=== PATIENT | male | born 1950 | race African-American/Black ===

== ENCOUNTER 2020-02-21 09:46 | Emergency (ER) | payer OTHER ==
[2020-02-21 09:55] VITALS: BMI 27.2
--- NOTE | 2020-02-21 11:05 | PDOC ---
History of Present Illness - General Chief Complaint: Blood Pressure Problem Stated Complaint: BLOOD PRESSURE PROBLEM Time Seen by Provider: 02/21/20 10:42 - History of Present Illness Initial Comments: Dagoberto Teran is a 69 y/o male with PMH significant for HTN presenting today with high blood pressure. He has been taking Losartan BID for many years now. Today he took his dose a little later than usual (7am instead of 5am). He checked his blood pressure and found it to be in the 190s. Reports mild left sided parietal headache (dull) that has since resolved. No vision changes. Reports mild left chest soreness that is non reproducible and non pleuritic for the past day. No nausea/vomiting. No back pain. No abdominal pain. No leg swelling. SocHx: 30 pack year smoking FamHx: HTN in father and mother, no hx of CAD Past History - Medical History Allergies/Adverse Reactions: Allergies Allergy/AdvReac Type Severity Reaction Status Date / Time No Known Allergies Allergy Verified 02/21/20 09:51 Home Medications: Ambulatory Orders Losartan/Hydrochlorothiazide 50 mg PO DAILY 02/21/20 Omeprazole Magnesium 20 mg PO ASDIR 02/21/20 COPD: No HTN: Yes - Surgical History Abdominal Surgery: Yes (bilat inguinal hernia repair @ 60 yrs ago) Cardiac Surgery: Yes (cardiac cath (neg)) - Psycho-Social/Smoking History Smoking History: Former smoker Have you smoked in the past 12 months: No Information on smoking cessation initiated: No - Substance Abuse Hx (Audit-C & DAST Scrn) How often the patient has a drink containing alcohol: Monthly or less Score: In Men: 4 or > Positive; In Women: 3 or > Positive: 1 Screen Result (Pos requires Nsg. Audit-10AR): Negative In the last yr the pt used illegal drug/Rx for NonMed reason: No Score: Yes response is considered Positive: 0 Screen Result (Positive result requires Nsg. DAST-10): Negative Review of Systems - Review of Systems Comments:: GENERAL/CONSTITUTIONAL: No fever or chills. No weakness._ HEAD, EYES, EARS, NOSE AND THROAT: No change in vision. No change in hearing. No sore throat._ CARDIOVASCULAR: Reports chest soreness. No shortness of breath_ RESPIRATORY: Denies cough, hemoptysis_ GASTROINTESTINAL: No nausea, vomiting, diarrhea or constipation._ GENITOURINARY: No dysuria, frequency, or change in urination._ MUSCULOSKELETAL: No joint or muscle swelling or pain. No neck or back pain._ SKIN: No rash_ NEUROLOGIC: Reports mild headache. No vertigo, loss of consciousness, or change in strength/sensation._ ENDOCRINE: No increased thirst. No abnormal weight change_ HEMATOLOGIC/LYMPHATIC: No anemia, easy bleeding, or history of blood clots._ ALLERGIC/IMMUNOLOGIC: No hives or skin allergy._ *Physical Exam - Vital Signs Last Vital Signs Temp Pulse Resp BP Pulse Ox 98.1 F 82 16 140/82 98 02/21/20 09:52 02/21/20 09:52 02/21/20 09:52 02/21/20 09:52 02/21/20 09:52 - Physical Exam GENERAL: Awake, alert, and oriented to person/place/time, in no acute distress_ HEAD: No signs of trauma, normocephalic, atraumatic _ EYES: PERRLA, EOMI, sclera anicteric, conjunctiva clear_ ENT: Hearing grossly normal, nares patent, oropharynx clear without exudates. No uvular deviation. Moist mucosa_ NECK: Normal ROM, supple, no lymphadenopathy, JVD, or masses_ LUNGS: No distress, speaks in full sentences, clear to auscultation bilaterally _ HEART: Regular rate and rhythm, normal S1 and S2, no murmurs appreciated, peripheral pulses normal and equal bilaterally._ ABDOMEN: Soft, nontender, normoactive bowel sounds. No guarding, no rebound. No masses_ EXTREMITIES: Normal inspection, Normal range of motion, no edema. No clubbing or cyanosis_ NEUROLOGICAL: Cranial nerves II through XII grossly intact. Normal speech, normal gait, no focal sensorimotor deficits _ SKIN: Warm, Dry, normal turgor, no rashes or lesions noted_ Heart Score/ECG Review - History History: Slightly suspicious - Electrocardiogram EKG: Normal - Age Age: >/= 65 - Risk Factors Risk Factors Heart Score: Yes Hx Hypertension, Yes Smoking History, No Positive family hx of cardiac disease Based on the list above the patient has:: 1-2 risk factors - Troponin Troponin: </= normal limit - Score Heart Score - Total: 3 ED Treatment Course - LABORATORY CBC & Chemistry Diagram: 02/21/20 11:00 02/21/20 11:00 - RADIOLOGY Radiology Studies Ordered: Category Date Time Status CHEST X-RAY PORTABLE* [RAD] Stat Radiology 02/21/20 10:57 Ordered Medical Decision Making - Medical Decision Making 02/21/20 11:16 69M hx of HTN presenting with high blood pressure at home in the 190s. Reports mild left sided parietal/occipital headache and left chest soreness. HEART score 3. -labs -trop x2 -ekg -cxr -ua 02/21/20 12:38 CXR negative for acute chest pathology. Labs reviewed. Laboratory Last Values WBC 7.6 K/mm3 (4.0-10.0) 02/21/20 11:00 RBC 5.80 M/mm3 (4.00-5.60) H 02/21/20 11:00 Hgb 15.9 GM/dL (11.7-16.9) 02/21/20 11:00 Hct 48.6 % (35.4-49) 02/21/20 11:00 MCV 83.8 fl (80-96) 02/21/20 11:00 MCH 27.4 pg (25.7-33.7) 02/21/20 11:00 MCHC 32.7 g/dl (32.0-35.9) 02/21/20 11:00 RDW 14.3 % (11.9-15.9) 02/21/20 11:00 Plt Count 242 K/MM3 (134-434) 02/21/20 11:00 MPV 8.5 fl (7.5-11.1) 02/21/20 11:00 Absolute Neuts (auto) 4.4 K/mm3 (1.5-8.0) 02/21/20 11:00 Neutrophils % 57.4 % (42.8-82.8) 02/21/20 11:00 Lymphocytes % 29.7 % (8-40) 02/21/20 11:00 Monocytes % 9.4 % (3.8-10.2) 02/21/20 11:00 Eosinophils % 2.6 % (0-4.5) 02/21/20 11:00 Basophils % 0.9 % (0-2.0) 02/21/20 11:00 Nucleated RBC % 0 % (0-0) 02/21/20 11:00 Sodium 143 mmol/L (136-145) 02/21/20 11:00 Potassium 3.8 mmol/L (3.5-5.1) 02/21/20 11:00 Chloride 111 mmol/L (98-107) H 02/21/20 11:00 Carbon Dioxide 25 mmol/L (21-32) 02/21/20 11:00 Anion Gap 7 MMOL/L (8-16) L 02/21/20 11:00 BUN 11.9 mg/dL (7-18) 02/21/20 11:00 Creatinine 0.8 mg/dL (0.55-1.3) 02/21/20 11:00 Est GFR (CKD-EPI)AfAm 106.38 02/21/20 11:00 Est GFR (CKD-EPI)NonAf 91.79 02/21/20 11:00 Random Glucose 94 mg/dL (74-106) 02/21/20 11:00 Calcium 9.9 mg/dL (8.5-10.1) 02/21/20 11:00 Total Bilirubin 1.4 mg/dL (0.2-1) H 02/21/20 11:00 AST 18 U/L (15-37) 02/21/20 11:00 ALT 30 U/L (13-61) 02/21/20 11:00 Alkaline Phosphatase 82 U/L (45-117) 02/21/20 11:00 Creatine Kinase 140 U/L (26-308) 02/21/20 11:00 Troponin I < 0.02 ng/ml (0.00-0.05) 02/21/20 11:00 Total Protein 7.1 g/dl (6.4-8.2) 02/21/20 11:00 Albumin 4.0 g/dl (3.4-5.0) 02/21/20 11:00 Urine Color Yellow 02/21/20 11:44 Urine Appearance Clear 02/21/20 11:44 Urine pH 5.5 (5.0-8.0) 02/21/20 11:44 Ur Specific [place] 1.020 (1.010-1.035) 02/21/20 11:44 Urine Protein Negative (NEGATIVE) 02/21/20 11:44 Urine Glucose (UA) Negative (NEGATIVE) 02/21/20 11:44 Urine Ketones Negative (NEGATIVE) 02/21/20 11:44 Urine Blood Negative (NEGATIVE) 02/21/20 11:44 Urine Nitrite Negative (NEGATIVE) 02/21/20 11:44 Urine Bilirubin Negative (NEGATIVE) 02/21/20 11:44 Urine Urobilinogen 1.0 mg/dL (0.2-1.0) 02/21/20 11:44 Ur Leukocyte Esterase Negative (NEGATIVE) 02/21/20 11:44 02/21/20 12:52 EKG shows 78 bpm, NSR, no ST elevation, normal axis, QTc 440. 02/21/20 14:42 EKG #2 shows 66 bpm, NSR, borderline left axis, no ST elevation, QTc 436, no change from EKG #1. 02/21/20 15:43 Labs reviewed. Laboratory Last Values WBC 7.6 K/mm3 (4.0-10.0) 02/21/20 11:00 RBC 5.80 M/mm3 (4.00-5.60) H 02/21/20 11:00 Hgb 15.9 GM/dL (11.7-16.9) 02/21/20 11:00 Hct 48.6 % (35.4-49) 02/21/20 11:00 MCV 83.8 fl (80-96) 02/21/20 11:00 MCH 27.4 pg (25.7-33.7) 02/21/20 11:00 MCHC 32.7 g/dl (32.0-35.9) 02/21/20 11:00 RDW 14.3 % (11.9-15.9) 02/21/20 11:00 Plt Count 242 K/MM3 (134-434) 02/21/20 11:00 MPV 8.5 fl (7.5-11.1) 02/21/20 11:00 Absolute Neuts (auto) 4.4 K/mm3 (1.5-8.0) 02/21/20 11:00 Neutrophils % 57.4 % (42.8-82.8) 02/21/20 11:00 Lymphocytes % 29.7 % (8-40) 02/21/20 11:00 Monocytes % 9.4 % (3.8-10.2) 02/21/20 11:00 Eosinophils % 2.6 % (0-4.5) 02/21/20 11:00 Basophils % 0.9 % (0-2.0) 02/21/20 11:00 Nucleated RBC % 0 % (0-0) 02/21/20 11:00 Sodium 143 mmol/L (136-145) 02/21/20 11:00 Potassium 3.8 mmol/L (3.5-5.1) 02/21/20 11:00 Chloride 111 mmol/L (98-107) H 02/21/20 11:00 Carbon Dioxide 25 mmol/L (21-32) 02/21/20 11:00 Anion Gap 7 MMOL/L (8-16) L 02/21/20 11:00 BUN 11.9 mg/dL (7-18) 02/21/20 11:00 Creatinine 0.8 mg/dL (0.55-1.3) 02/21/20 11:00 Est GFR (CKD-EPI)AfAm 106.38 02/21/20 11:00 Est GFR (CKD-EPI)NonAf 91.79 02/21/20 11:00 Random Glucose 94 mg/dL (74-106) 02/21/20 11:00 Calcium 9.9 mg/dL (8.5-10.1) 02/21/20 11:00 Total Bilirubin 1.4 mg/dL (0.2-1) H 02/21/20 11:00 AST 18 U/L (15-37) 02/21/20 11:00 ALT 30 U/L (13-61) 02/21/20 11:00 Alkaline Phosphatase 82 U/L (45-117) 02/21/20 11:00 Creatine Kinase 140 U/L (26-308) 02/21/20 11:00 Troponin I < 0.02 ng/ml (0.00-0.05) 02/21/20 14:30 Total Protein 7.1 g/dl (6.4-8.2) 02/21/20 11:00 Albumin 4.0 g/dl (3.4-5.0) 02/21/20 11:00 Urine Color Yellow 02/21/20 11:44 Urine Appearance Clear 02/21/20 11:44 Urine pH 5.5 (5.0-8.0) 02/21/20 11:44 Ur Specific [place] 1.020 (1.010-1.035) 02/21/20 11:44 Urine Protein Negative (NEGATIVE) 02/21/20 11:44 Urine Glucose (UA) Negative (NEGATIVE) 02/21/20 11:44 Urine Ketones Negative (NEGATIVE) 02/21/20 11:44 Urine Blood Negative (NEGATIVE) 02/21/20 11:44 Urine Nitrite Negative (NEGATIVE) 02/21/20 11:44 Urine Bilirubin Negative (NEGATIVE) 02/21/20 11:44 Urine Urobilinogen 1.0 mg/dL (0.2-1.0) 02/21/20 11:44 Ur Leukocyte Esterase Negative (NEGATIVE) 02/21/20 11:44 Pt reassessed. Reports significant improvement. Plan to d/c home with PCP and cards f/u. All questions answered. Return precautions given. Pt verbalized understanding and agreement with plan. Discharge - Discharge Information Problems reviewed: Yes Clinical Impression/Diagnosis: Chest pain Qualifiers: Chest pain type: unspecified Qualified Code(s): R07.9 - Chest pain, unspecified Hypertension Qualifiers: Hypertension type: unspecified Qualified Code(s): I10 - Essential (primary) hypertension Condition: Stable - Admission No - Follow up/Referral Referrals: Guille Michelle MD [Primary Care Provider] - - Patient Discharge Instructions Patient Printed Discharge Instructions: DI for High Blood Pressure Additional Instructions: Please make a follow up appointment with your primary care doctor and a green building engineer (referrals provided here). Please continue taking your medications as prescribed. If you experience any new, worsening, or concerning symptoms, including worsening chest pain, shortness of breath, dizziness, headache, or any other concerns, please return to the emergency department. - Post Discharge Activity
[2020-02-21 11:19] LABS: BASO % 0.9 % (0-2.0); EOS % 2.6 % (0-4.5); HEMATOCRIT 48.6 % (35.4-49); HEMOGLOBIN 15.9 GM/dL (11.7-16.9); LYMPH % 29.7 % (8-40); MCH 27.4 pg (25.7-33.7); MCHC 32.7 g/dl (32.0-35.9); MEAN CELL VOLUME 83.8 fl (80-96); MEAN PLT VOLUME 8.5 fl (7.5-11.1); MONO % 9.4 % (3.8-10.2); NEUT % 57.4 % (42.8-82.8); PLATELET COUNT 242 K/MM3 (134-434); RDW 14.3 % (11.9-15.9); WHITE BLOOD COUNT 7.6 K/mm3 (4.0-10.0)
[2020-02-21 11:58] LABS: ALK PHOS 82 U/L (45-117); ANION GAP 7 MMOL/L (8-16); BILIRUBIN,TOTAL 1.4 mg/dL (0.2-1); BLOOD UREA NITROGEN 11.9 mg/dL (7-18); CALCIUM 9.9 mg/dL (8.5-10.1); CHLORIDE 111 mmol/L (98-107); CO2 25 mmol/L (21-32); CREATININE 0.8 mg/dL (0.55-1.3); GLUCOSE,RANDOM 94 mg/dL (74-106); POTASSIUM 3.8 mmol/L (3.5-5.1); SGOT/AST 18 U/L (15-37); SGPT/ALT 30 U/L (13-61); SODIUM 143 mmol/L (136-145); TOT PROT 7.1 g/dl (6.4-8.2)
[2020-02-21 12:05] LABS: PH,URINE 5.5 (5.0-8.0); URINE APPEARANCE CLEAR; URINE BILIRUBIN NEGATIVE (NEGATIVE); URINE COLOR YELLOW; URINE GLUCOSE (UA) NEGATIVE (NEGATIVE); URINE KETONE NEGATIVE (NEGATIVE); URINE LEUK ESTERASE NEGATIVE (NEGATIVE); URINE NITRITE NEGATIVE (NEGATIVE); URINE PROTEIN NEGATIVE (NEGATIVE)
--- NOTE | 2020-02-21 12:54 | PDOC ---
Documentation entered by Paris Madrid SCRIBE, acting as scribe for Cris Parker MD. Cris Parker MD: This documentation has been prepared by the Julius rm Brenda, SCRIBE, under my direction and personally reviewed by me in its entirety. I confirm that the documentation accurately reflects all work, treatment, procedures, and medical decision making performed by me. Attending Attestation - Resident Resident Name: Moreno Briscoe - ED Attending Attestation I have performed the following: I have examined & evaluated the patient, The case was reviewed & discussed with the resident, I agree w/resident's findings & plan, Exceptions are as noted - HPI HPI: 02/21/20 10:55 The patient is a 69 year old male with a significant PMH of HTN (on Losartan) and prostate cancer who presents to the ED for evaluation of high blood pressure since this morning. Patient notes that he has been on Losartan for years and usually takes it at 5:00am, however today he took it at 7:00am and when he checked his BP it was 190, prompting him to come into the ED. Patient is also endorsing left sided chest tightness. The patient denies shortness of breath and dizziness. Denies fever, chills, nausea, vomiting, diarrhea and constipation. Denies dysuria, frequency, urgency and hematuria. Allergies: NKA Social history: No reported hx of tobacco use, alcohol use or illicit drug use. PCP: Guille Michelle 02/22/20 14:49 - Physicial Exam PE: 02/21/20 10:57 GENERAL: nontoxic-appearing, A/Ox4, no distress, answers questions appropriately, pleasant, not anxious, accompanied by significant other who is supportive HEENT: PERRLA, EOMI, moist mucous membranes NECK/BACK: no midline ttp, no spinal stepoff or deformity, no hematoma, full ROM, neck supple CARDIOVASCULAR: regular rate/rhythm, no MGR, strong peripheral pulses, capillary refill <2 seconds, extremities wwp, no edema LUNGS/RESPIRATORY: no respiratory distress, CTAB GI/ABDOMEN: symmetric [id number], normoactive BS, soft, no ttp, no midline pulsatile masses : no CVA tenderness MSK/EXTREMITIES: no muscle atrophy, no acute deformity SKIN: warm and dry, no pallor, no jaundice, no rash, no pathologic-appearing bruising, no skin breakdown, no cuts, no lesions NEUROLOGICAL: GCS 15, CN II-XII grossly intact, 5/5 strength proximally and distally, no facial droop - Medical Decision Making 02/21/20 12:52 69YOM p/w chest pain. Initial Vital Signs Temp Pulse Resp BP Pulse Ox 98.1 F 82 16 140/82 98 02/21/20 09:52 02/21/20 09:52 02/21/20 09:52 02/21/20 09:52 02/21/20 09:52 DDX IBNLT: most likely musculoskeletal or ACS, less likely any other serious diagnosis e.g. pericarditis, PTX, PE, gastritis, PUD, PNA/bronchitis, etc. Will assess for each of these wiht labs and imaging as well as EKG. W/U ordered: EKG CXR Labs as below EKG: Reviewed; results as noted in ECG Review section. RAD/CHEST X-RAY PORTABLE* Portable chest: Chest soreness. Single AP view of the chest has been submitted. Since the prior since 10/21/2010, again noted is a good inspiration with clear lungs, normal mediastinum and sharp angles. The bones and soft tissues are intact. Impression: No acute chest pathology. Laboratory Tests 02/21/20 02/21/20 02/21/20 11:00 11:00 11:44 WBC 7.6 RBC 5.80 H Hgb 15.9 Hct 48.6 MCV 83.8 MCH 27.4 MCHC 32.7 RDW 14.3 Plt Count 242 MPV 8.5 Absolute Neuts (auto) 4.4 Neutrophils % 57.4 Lymphocytes % 29.7 Monocytes % 9.4 Eosinophils % 2.6 Basophils % 0.9 Nucleated RBC % 0 Sodium 143 Potassium 3.8 Chloride 111 H Carbon Dioxide 25 Anion Gap 7 L BUN 11.9 Creatinine 0.8 Est GFR (CKD-EPI)AfAm 106.38 Est GFR (CKD-EPI)NonAf 91.79 Random Glucose 94 Calcium 9.9 Total Bilirubin 1.4 H AST 18 ALT 30 Alkaline Phosphatase 82 Creatine Kinase 140 Troponin I < 0.02 Total Protein 7.1 Albumin 4.0 Urine Color Yellow Urine Appearance Clear Urine pH 5.5 Ur Specific [place] 1.020 Urine Protein Negative Urine Glucose (UA) Negative Urine Ketones Negative Urine Blood Negative Urine Nitrite Negative Urine Bilirubin Negative Urine Urobilinogen 1.0 Ur Leukocyte Esterase Negative 02/21/20 14:30 WBC RBC Hgb Hct MCV MCH MCHC RDW Plt Count MPV Absolute Neuts (auto) Neutrophils % Lymphocytes % Monocytes % Eosinophils % Basophils % Nucleated RBC % Sodium Potassium Chloride Carbon Dioxide Anion Gap BUN Creatinine Est GFR (CKD-EPI)AfAm Est GFR (CKD-EPI)NonAf Random Glucose Calcium Total Bilirubin AST ALT Alkaline Phosphatase Creatine Kinase Troponin I < 0.02 Total Protein Albumin Urine Color Urine Appearance Urine pH Ur Specific [place] Urine Protein Urine Glucose (UA) Urine Ketones Urine Blood Urine Nitrite Urine Bilirubin Urine Urobilinogen Ur Leukocyte Esterase Last Vital Signs Temp Pulse Resp BP Pulse Ox 98 F 78 18 139/78 98 02/21/20 15:51 02/21/20 15:51 02/21/20 15:51 02/21/20 15:51 02/21/20 15:51 Repeat EKG unchanged: NSR, rate 66, left axis deviation, no ischemic ST-T changes. Repeat cardiac enzymes are negative. No new abnormal rhythms have been observed on the lunchroom monitor. On last reassessment VS are stable, Pts pain is resolved, and exam is benign. The Pts HEART score indicates they are low risk and do not require admission currently. The Pt is appropriate for discharge with close outpatient follow up. They are comfortable with this plan and will follow up with PCP in 1-3 days. Specific return precautions are discussed and they will come back to the ER if necessary. Heart Score/ECG Review - History History: Slightly suspicious - Electrocardiogram EKG: Normal - Age Age: >/= 65 - Risk Factors Risk Factors Heart Score: Yes Hx Hypertension Based on the list above the patient has:: 1-2 risk factors - Troponin Troponin: </= normal limit - Score Heart Score - Total: 3 #1 Sinus rhythm, rate 78, normal axis and intervals, no ischemic ST-T changes Discharge - Discharge Information Problems reviewed: Yes Clinical Impression/Diagnosis: Chest pain Qualifiers: Chest pain type: unspecified Qualified Code(s): R07.9 - Chest pain, unspecified Hypertension Qualifiers: Hypertension type: unspecified Qualified Code(s): I10 - Essential (primary) hypertension Condition: Stable Disposition: HOME - Admission No - Follow up/Referral Referrals: Rashad Hoang MD [Staff Physician] - Guille Michelle MD [Primary Care Provider] - - Patient Discharge Instructions Patient Printed Discharge Instructions: DI for High Blood Pressure Additional Instructions: Please make a follow up appointment with your primary care doctor and a marketing services coordinator (referrals provided here). Please continue taking your medications as prescribed. If you experience any new, worsening, or concerning symptoms, including worsening chest pain, shortness of breath, dizziness, headache, or any other concerns, please return to the emergency department. - Post Discharge Activity
--- NOTE | 2020-02-21 14:57 | EKG ---
Test Reason : Blood Pressure : / mmHG Vent. Rate : 078 BPM Atrial Rate : 078 BPM P-R Int : 124 ms QRS Dur : 098 ms QT Int : 386 ms P-R-T Axes : 061 -29 056 degrees QTc Int : 440 ms NORMAL SINUS RHYTHM MINIMAL VOLTAGE CRITERIA FOR LVH, MAY BE NORMAL VARIANT BORDERLINE ECG WHEN COMPARED WITH ECG OF 22-OCT-2010 10:11, NO SIGNIFICANT CHANGE WAS FOUND Confirmed by DANNA AMATO MD ([id number]) on 02/21/2020 2:57:05 PM Referred By: Confirmed By:DANNA AMATO MD
[2020-02-21 15:53] VITALS: BP 139/78; PULSE 78; TEMP 98
--- NOTE | 2020-02-23 09:25 | EKG ---
Test Reason : Blood Pressure : / mmHG Vent. Rate : 066 BPM Atrial Rate : 066 BPM P-R Int : 124 ms QRS Dur : 106 ms QT Int : 416 ms P-R-T Axes : 066 -33 016 degrees QTc Int : 436 ms NORMAL SINUS RHYTHM LEFT AXIS DEVIATION /LAFB MODERATE VOLTAGE CRITERIA FOR LVH, MAY BE NORMAL VARIANT ABNORMAL ECG WHEN COMPARED WITH ECG OF 21-FEB-2020 09:56, NO SIGNIFICANT CHANGE WAS FOUND Confirmed by Shayy Marrufo ([id number]) on 02/23/2020 9:24:30 AM Referred By: Confirmed By:Shayy Marrufo
== END 2020-02-21 15:53 | disposition home or self-care (01) ==
LOC: JER 09:46
DX: R07.9 Chest pain, unspecified (principal); I10 Essential (primary) hypertension
CPT/HCPCS: 36415; 71045-TC-FY; 80053; 81003; 82550; 84484; 85025; 93005; 93010; 99285-25

== ENCOUNTER 2022-02-07 12:05 | Inpatient (IN) | payer OTHER ==
[2022-02-07 12:32] VITALS: BMI 23.3
[2022-02-07 14:19] LABS: INR 1.03 (0.83-1.09); PROTHROMBIN TIME (PATIENT) 11.9 SEC (9.7-13.0)
[2022-02-07 14:20] LABS: BASO % 0.2 % (0-2.0); EOS % 0.5 % (0-4.5); HEMATOCRIT 40.7 % (35.4-49); HEMOGLOBIN 13.3 GM/dL (11.7-16.9); LYMPH % 4.5 % (8-40); MCH 26.9 pg (25.7-33.7); MCHC 32.6 g/dl (32.0-35.9); MEAN CELL VOLUME 82.6 fl (80-96); MEAN PLT VOLUME 8.8 fl (7.5-11.1); MONO % 7.9 % (3.8-10.2); NEUT % 86.9 % (42.8-82.8); PLATELET COUNT 238 10^3/uL (134-434); RBC 4.93 M/mm3 (4.00-5.60); RDW 13.9 % (11.9-15.9); WHITE BLOOD COUNT 13.3 K/mm3 (4.0-10.0)
[2022-02-07 14:22] LABS: ACTIVATED PTT 25.6 SECONDS (25.2-36.5)
[2022-02-07 14:42] LABS: CALCIUM 9.2 mg/dL (8.5-10.1)
[2022-02-07 14:43] LABS: ALBUMIN 3.8 g/dl (3.4-5.0); BLOOD UREA NITROGEN 18.5 mg/dL (7-18)
[2022-02-07 14:46] LABS: CREATININE 0.9 mg/dL (0.55-1.3)
[2022-02-07 14:47] LABS: BILIRUBIN,TOTAL 1.6 mg/dL (0.2-1); TOT PROT 6.5 g/dl (6.4-8.2)
[2022-02-07 15:06] LABS: EPI CELLS 2 /uL (0-25.1); HYALINE CASTS 1 /uL (0-3.1); URINE APPEARANCE CLEAR; URINE BACTERIA 1 /uL (0-1359); URINE BILIRUBIN NEGATIVE (NEGATIVE); URINE COLOR YELLOW; URINE GLUCOSE (UA) NEGATIVE (NEGATIVE); URINE KETONE NEGATIVE (NEGATIVE); URINE LEUK ESTERASE TRACE (NEGATIVE); URINE NITRITE NEGATIVE (NEGATIVE); URINE PROTEIN NEGATIVE (NEGATIVE); URINE RBC 13 /uL (0-23.9); URINE WBC 6 /uL (0-25.8)
[2022-02-08 08:16] LABS: BASO % 0.2 % (0-2.0); EOS % 0.4 % (0-4.5); HEMATOCRIT 41.1 % (35.4-49); HEMOGLOBIN 13.3 GM/dL (11.7-16.9); LYMPH % 7.7 % (8-40); MCH 26.5 pg (25.7-33.7); MCHC 32.5 g/dl (32.0-35.9); MEAN CELL VOLUME 81.8 fl (80-96); MEAN PLT VOLUME 8.7 fl (7.5-11.1); MONO % 8.4 % (3.8-10.2); NEUT % 83.3 % (42.8-82.8); PLATELET COUNT 243 10^3/uL (134-434); RBC 5.02 M/mm3 (4.00-5.60); RDW 14.1 % (11.9-15.9); WHITE BLOOD COUNT 9.7 K/mm3 (4.0-10.0)
[2022-02-08 08:46] LABS: CALCIUM 9.3 mg/dL (8.5-10.1)
[2022-02-08 08:47] LABS: ALBUMIN 3.6 g/dl (3.4-5.0); BLOOD UREA NITROGEN 16.4 mg/dL (7-18)
[2022-02-08 08:50] LABS: CREATININE 0.7 mg/dL (0.55-1.3)
[2022-02-08 08:52] LABS: BILIRUBIN,TOTAL 1.9 mg/dL (0.2-1); TOT PROT 6.2 g/dl (6.4-8.2)
[2022-02-08] MEDS ORDERED: LOSARTAN 50MG/HCTZ 12.5MG 1 TAB PO SCH (10:00)
[2022-02-08 10:57] VITALS: BP 117/64; PULSE 100; TEMP 98.9
== END 2022-02-08 13:20 | disposition left against medical advice (07) | DRG 312 ==
LOC: JER 12:05 → JERBED 15:29 → J4W 02-08 00:05
PROVIDERS: ADMIT Internal Medicine; ATTEND Internal Medicine
DX: R55 Syncope and collapse (principal); I95.9 Hypotension, unspecified; D72.829 Elevated white blood cell count, unspecified; N40.0 Benign prostatic hyperplasia without lower urinary tract symptoms; I10 Essential (primary) hypertension
CPT/HCPCS: 36415; 70450-TC; 71046-TC-FY; 80053; 81003; 82962; 84484; 85025; 85610; 85730; 87086; 93005; 93010; 93306-TC; 99285-25; C9803-CS; U0003; U0005

== ENCOUNTER 2023-10-18 11:26 | Emergency (ER) | payer OTHER ==
[2023-10-18 11:42] VITALS: BMI 24.0
[2023-10-18] MEDS: SODIUM CHLORIDE 0.9% 500 ML INFUS.BAG IV ONE (13:12)
[2023-10-18 13:25] LABS: HEMATOCRIT 42.3 % (35.4-49); HEMOGLOBIN 13.8 GM/dL (11.7-16.9); MCH 26.9 pg (25.7-33.7); MCHC 32.6 g/dl (32.0-35.9); MEAN CELL VOLUME 82.4 fl (80-96); PLATELET COUNT 274 10^3/uL (134-434); RBC 5.13 M/mm3 (4.00-5.60); RDW 14.2 % (11.9-15.9); WHITE BLOOD COUNT 16.1 K/mm3 (4.0-10.0)
[2023-10-18 13:26] LABS: EPI CELLS 5 /uL (0-25.1); HYALINE CASTS 0 /uL (0-3.1); URINE APPEARANCE CLEAR; URINE BACTERIA 3 /uL (0-1359); URINE BILIRUBIN NEGATIVE (NEGATIVE); URINE COLOR YELLOW; URINE GLUCOSE (UA) NEGATIVE (NEGATIVE); URINE KETONE NEGATIVE (NEGATIVE); URINE LEUK ESTERASE TRACE (NEGATIVE); URINE NITRITE NEGATIVE (NEGATIVE); URINE PROTEIN NEGATIVE (NEGATIVE); URINE RBC 24 /uL (0-23.9); URINE WBC 12 /uL (0-25.8)
[2023-10-18 13:29] VITALS: TEMP 98.7
[2023-10-18 14:02] LABS: BLOOD UREA NITROGEN 17.2 mg/dL (7-18); CALCIUM 9.8 mg/dL (8.5-10.1)
[2023-10-18 14:03] LABS: ALBUMIN 3.7 g/dl (3.4-5.0)
[2023-10-18 14:04] LABS: CREATININE 0.8 mg/dL (0.55-1.3)
[2023-10-18 14:07] LABS: BILIRUBIN,TOTAL 1.9 mg/dL (0.2-1); TOT PROT 6.7 g/dl (6.4-8.2)
[2023-10-18 16:21] VITALS: BP 115/63; PULSE 88; RESP 20
== END 2023-10-18 16:22 | disposition left against medical advice (07) ==
LOC: JER 11:26
DX: R55 Syncope and collapse (principal); R42 Dizziness and giddiness; R51.9 Headache, unspecified; Z20.822 Contact with and (suspected) exposure to COVID-19
CPT/HCPCS: 0241U-QW; 36415; 70450-TC; 71045-TC-FY; 80053; 81003; 82550; 84484; 85025; 87086; 93005; 93010; 99285-25

== ENCOUNTER 2024-08-18 11:42 | Emergency (ER) | payer OTHER ==
[2024-08-18 12:04] VITALS: BMI 24.7
[2024-08-18] MEDS: SODIUM CHLORIDE 1,000 ML IV STA (14:13)
[2024-08-18] MEDS ORDERED: ACETAMINOPHEN INJECTION 100 ML ONE (14:14)
[2024-08-18] MEDS: ACETAMINOPHEN 1000 MG/100 ML BAG IVPB ONE (14:18)
[2024-08-18 14:29] LABS: INR 1.04 (0.83-1.09); PROTHROMBIN TIME (PATIENT) 11.9 SEC (9.7-13.0)
[2024-08-18 14:32] LABS: ACTIVATED PTT 34.7 SECONDS (25.2-36.5)
[2024-08-18 14:34] LABS: BASO % 0.2 % (0-2.0); EOS % 0.3 % (0-4.5); HEMATOCRIT 47.8 % (35.4-49); HEMOGLOBIN 15.6 GM/dL (11.7-16.9); LYMPH % 5.7 % (8-40); MCH 26.4 pg (25.7-33.7); MCHC 32.6 g/dl (32.0-35.9); MEAN CELL VOLUME 81.1 fl (80-96); MEAN PLT VOLUME 8.3 fl (7.5-11.1); NEUT % 87.8 % (42.8-82.8); PLATELET COUNT 293 10^3/uL (134-434); WHITE BLOOD COUNT 7.5 K/mm3 (4.0-10.0)
[2024-08-18 14:41] LABS: POTASSIUM 3.8 mmol/L (3.5-5.1)
[2024-08-18 14:44] LABS: ALBUMIN 3.9 g/dl (3.4-5.0); CALCIUM 9.6 mg/dL (8.5-10.1); MAGNESIUM 1.9 mg/dL (1.8-2.4)
[2024-08-18 14:49] LABS: BILIRUBIN,TOTAL 1.2 mg/dL (0.2-1); TOT PROT 7.6 g/dl (6.4-8.2)
[2024-08-18 15:37] LABS: HIV INTERPRETATION NEGATIVE (NEGATIVE)
[2024-08-18 18:19] VITALS: BP 111/68; PULSE 79; RESP 15; TEMP 97.9
== END 2024-08-18 18:44 | disposition home or self-care (01) ==
LOC: JER 11:42
PROC: 3E033NZ Introduction of Analgesics, Hypnotics, Sedatives into Peripheral Vein, Percutaneous Approach (ICD-10-PCS; principal; 2024-08-18)
PROC: 3E0337Z Introduction of Electrolytic and Water Balance Substance into Peripheral Vein, Percutaneous Approach (ICD-10-PCS; 2024-08-18)
DX: A08.8 Other specified intestinal infections (principal); Z20.822 Contact with and (suspected) exposure to COVID-19
CPT/HCPCS: 0241U-QW; 36415; 70450-TC; 71045-TC-FY; 80053; 83735; 84484; 85025; 85610; 85730; 86803; 87389; 93005; 93010; 99285-25; J0131